=== PATIENT | male | born 1945 | race Caucasian/White ===

== ENCOUNTER 2023-02-25 14:07 | Inpatient (IN) | payer MEDICAID, OTHER ==
[~2023-02-25] VITALS: Ht 177.8 cm; Wt 67.1 kg
[2023-02-25 19:03] LABS: APPEARANCE,URINE SLIGHTLY CLOUDY (CLEAR); BILIRUBIN,URINE 1+ (NEGATIVE); BLOOD, URINE NEGATIVE Ery/uL (NEGATIVE); COLOR,URINE YELLOW (YELLOW); KETONES,URINE TRACE mg/dL (NEGATIVE); LEUKOCYTE ESTERASE ,URINE TRACE (NEGATIVE); NITRITE, URINE NEGATIVE (NEGATIVE); PROTEIN,URINE TRACE mg/dl (NEGATIVE); UGLUCOSE NEGATIVE (NEGATIVE)
[2023-02-25 19:20] LABS: ADD URINE CULTURE NO; BACTERIA,URINE RARE /HPF (None Seen); HYALINE CASTS, URINE Few /LPF (None Seen); MUCUS,URINE Few /LPF (None Seen); RBC,URINE 0-2 /HPF (0-2)
[2023-02-25 20:22] LABS: BASOPHILS # (AUTO) 0.1 K/uL (0.0-0.2); BASOPHILS % (AUTO) 0.9 % (0.0-2.0); EOSINOPHILS # (AUTO) 0.1 K/uL (0.0-0.7); EOSINOPHILS % (AUTO) 1.7 % (0.0-6.0); HEMATOCRIT 42 % (39-51); HEMOGLOBIN 13.8 g/dL (13.5-17.5); LYMPHOCYTES # (AUTO) 2.2 K/uL (0.8-4.8); LYMPHOCYTES % (AUTO) 31.9 % (20.0-44.0); MEAN CORPUSCULAR HEMOGLOBIN 33 PG (26.0-33.0); MEAN CORPUSCULAR HGB CONC 33 g/dl (31.0-36.0); MEAN CORPUSCULAR VOLUME 101 fL (80-96); MONOCYTES # (AUTO) 0.7 K/uL (0.1-1.30); MONOCYTES % (AUTO) 9.6 % (2.0-12.0); NEUTROPHILS # (AUTO) 3.8 K/uL (1.8-8.9); NEUTROPHILS % (AUTO) 55.9 % (43.0-81.0); PLATELET COUNT (AUTO) 154 K/uL (150-450); RED BLOOD CELL COUNT(AUTO) 4.16 MIL/uL (4.5-6.0); RED CELL DISTRIBUTION WIDTH 13.9 % (11.5-15.0); WHITE BLOOD COUNT (AUTO) 6.9 K/uL (4.3-11.0)
[2023-02-25 20:31] LABS: CALCIUM, SERUM 9.1 mg/dL (8.5-10.1); CARBON DIOXIDE 24 mmol/L (21-32); CHLORIDE 105 mmol/L (98-107); GLUCOSE 127 mg/dL (74-106); POTASSIUM 3.5 mmol/L (3.5-5.1); SODIUM SERUM 141 mmol/L (136-145); UREA NITROGEN, BLOOD 21 mg/dL (7-18)
[2023-02-25] MEDS ORDERED: IV NS 0.9% 1,000 ML IV ONE (21:00)
[2023-02-25 21:30] VITALS: BP 144/68; TEMP 97.7; O2SAT 97
[2023-02-25] MEDS ORDERED: Z GUARD REMEDY 4 OZ OINT TP PRN (22:00)
[2023-02-25] MEDS ORDERED: ZOLPIDEM TARTRATE 5 MG TABLET PO PRN (22:00)
[2023-02-25] MEDS ORDERED: MAGNESIUM HYDROXIDE 30 ML UDC PO PRN (22:00)
[2023-02-25] MEDS ORDERED: ONDANSETRON HCL/PF 4 MG/2 ML VIAL IVP PRN (22:00)
[2023-02-25] MEDS ORDERED: MAG HYDROX/AL HYDROX/SIMETH 30 ML UDC PO PRN (22:00)
[2023-02-25] MEDS: ENOXAPARIN SODIUM 40 MG/0.4 ML DISP.SYRIN SQ SCH (22:54)
[2023-02-26] MEDS ORDERED: HYDR25TA4 PO (00:58)
[2023-02-26] MEDS ORDERED: LATA2.5D2 EACHEYE (00:58)
[2023-02-26] MEDS ORDERED: ASPI-1169 PO (00:58)
[2023-02-26] MEDS ORDERED: LISI20TA30 PO (00:58)
[2023-02-26] MEDS ORDERED: DORZ10DR13 EACHEYE (00:58)
[2023-02-26] MEDS ORDERED: MORPHINE SULFATE INJ 2 MG/ML DISP.SYRIN IV PRN (05:21)
[2023-02-26 06:10] LABS: BASOPHILS # (AUTO) 0.1 K/uL (0.0-0.2); BASOPHILS % (AUTO) 0.9 % (0.0-2.0); EOSINOPHILS # (AUTO) 0.2 K/uL (0.0-0.7); EOSINOPHILS % (AUTO) 2.6 % (0.0-6.0); HEMATOCRIT 39 % (39-51); HEMOGLOBIN 13.1 g/dL (13.5-17.5); LYMPHOCYTES # (AUTO) 2.1 K/uL (0.8-4.8); LYMPHOCYTES % (AUTO) 34.2 % (20.0-44.0); MEAN CORPUSCULAR HEMOGLOBIN 33 PG (26.0-33.0); MEAN CORPUSCULAR HGB CONC 33 g/dl (31.0-36.0); MEAN CORPUSCULAR VOLUME 100 fL (80-96); MONOCYTES # (AUTO) 0.8 K/uL (0.1-1.30); MONOCYTES % (AUTO) 12.2 % (2.0-12.0); NEUTROPHILS # (AUTO) 3.1 K/uL (1.8-8.9); NEUTROPHILS % (AUTO) 50.1 % (43.0-81.0); PLATELET COUNT (AUTO) 156 K/uL (150-450); RED BLOOD CELL COUNT(AUTO) 3.94 MIL/uL (4.5-6.0); RED CELL DISTRIBUTION WIDTH 13.9 % (11.5-15.0); WHITE BLOOD COUNT (AUTO) 6.2 K/uL (4.3-11.0)
[2023-02-26 06:31] LABS: CALCIUM, SERUM 8.7 mg/dL (8.5-10.1); CARBON DIOXIDE 26 mmol/L (21-32); CHLORIDE 107 mmol/L (98-107); GLUCOSE 103 mg/dL (74-106); MAGNESIUM 1.8 mg/dL (1.8-2.4); PHOSPHORUS 3.5 mg/dL (2.5-4.9); POTASSIUM 3.4 mmol/L (3.5-5.1); SODIUM SERUM 141 mmol/L (136-145); UREA NITROGEN, BLOOD 20 mg/dL (7-18)
[2023-02-26 06:41] LABS: THYROID STIMULATING HORMONE 1.128 uIU/mL (0.358-3.74)
[2023-02-26 08:00] VITALS: BP 159/75; TEMP 98.1; O2SAT 96
[2023-02-26] MEDS: PANTOPRAZOLE 40 MG TABLET.DR PO SCH (08:11)
[2023-02-26] MEDS ORDERED: POTASSIUM CHLORIDE 20 MEQ TAB.PRT.SR PO SCH (10:30)
[2023-02-26 16:14] VITALS: BP 141/79; TEMP 98.2; O2SAT 95
[2023-02-26 20:00] VITALS: BP 136/73; TEMP 98.1; O2SAT 97
[2023-02-26] MEDS: ENOXAPARIN SODIUM 40 MG/0.4 ML DISP.SYRIN SQ SCH (22:51)
[2023-02-27 06:21] LABS: BASOPHILS # (AUTO) 0.1 K/uL (0.0-0.2); EOSINOPHILS # (AUTO) 0.2 K/uL (0.0-0.7); EOSINOPHILS % (AUTO) 2.5 % (0.0-6.0); HEMATOCRIT 39 % (39-51); LYMPHOCYTES # (AUTO) 2.2 K/uL (0.8-4.8); LYMPHOCYTES % (AUTO) 34.9 % (20.0-44.0); MEAN CORPUSCULAR HEMOGLOBIN 33 PG (26.0-33.0); MEAN CORPUSCULAR HGB CONC 33 g/dl (31.0-36.0); MEAN CORPUSCULAR VOLUME 100 fL (80-96); MONOCYTES # (AUTO) 0.7 K/uL (0.1-1.30); MONOCYTES % (AUTO) 10.5 % (2.0-12.0); NEUTROPHILS # (AUTO) 3.2 K/uL (1.8-8.9); NEUTROPHILS % (AUTO) 51.1 % (43.0-81.0); PLATELET COUNT (AUTO) 165 K/uL (150-450); RED BLOOD CELL COUNT(AUTO) 3.91 MIL/uL (4.5-6.0); RED CELL DISTRIBUTION WIDTH 13.6 % (11.5-15.0); WHITE BLOOD COUNT (AUTO) 6.2 K/uL (4.3-11.0)
[2023-02-27 06:34] LABS: CALCIUM, SERUM 8.9 mg/dL (8.5-10.1); CARBON DIOXIDE 25 mmol/L (21-32); CHLORIDE 109 mmol/L (98-107); CREATININE 0.9 mg/dL (0.6-1.3); GLUCOSE 106 mg/dL (74-106); POTASSIUM 3.8 mmol/L (3.5-5.1); SODIUM SERUM 142 mmol/L (136-145); UREA NITROGEN, BLOOD 22 mg/dL (7-18)
[2023-02-27 07:00] VITALS: BP 151/75; TEMP 97.3; O2SAT 99
[2023-02-27] MEDS: PANTOPRAZOLE 40 MG TABLET.DR PO SCH (08:12)
[2023-02-27] MEDS ORDERED: LIDOCAINE 2% 20 ML MDV TP STA (12:21)
[2023-02-27 16:00] VITALS: BP 158/84; TEMP 97.5; O2SAT 98
[2023-02-27] MEDS: LISINOPRIL (20MG) 20 MG TABLET PO SCH (16:55)
[2023-02-27] MEDS: HYDROCHLOROTHIAZIDE 25 MG TABLET PO SCH (16:56)
[2023-02-27 20:00] VITALS: BP 147/74; TEMP 97.6; O2SAT 92
[2023-02-27] MEDS: ENOXAPARIN SODIUM 40 MG/0.4 ML DISP.SYRIN SQ SCH (22:11)
[2023-02-28 06:13] LABS: BASOPHILS % (AUTO) 0.9 % (0.0-2.0); EOSINOPHILS # (AUTO) 0.2 K/uL (0.0-0.7); EOSINOPHILS % (AUTO) 3.4 % (0.0-6.0); HEMATOCRIT 41 % (39-51); HEMOGLOBIN 13.6 g/dL (13.5-17.5); LYMPHOCYTES # (AUTO) 1.9 K/uL (0.8-4.8); LYMPHOCYTES % (AUTO) 34.8 % (20.0-44.0); MEAN CORPUSCULAR HEMOGLOBIN 33 PG (26.0-33.0); MEAN CORPUSCULAR HGB CONC 33 g/dl (31.0-36.0); MEAN CORPUSCULAR VOLUME 100 fL (80-96); MONOCYTES # (AUTO) 0.7 K/uL (0.1-1.30); MONOCYTES % (AUTO) 11.7 % (2.0-12.0); NEUTROPHILS # (AUTO) 2.7 K/uL (1.8-8.9); NEUTROPHILS % (AUTO) 49.2 % (43.0-81.0); PLATELET COUNT (AUTO) 154 K/uL (150-450); RED BLOOD CELL COUNT(AUTO) 4.09 MIL/uL (4.5-6.0); RED CELL DISTRIBUTION WIDTH 13.7 % (11.5-15.0); WHITE BLOOD COUNT (AUTO) 5.6 K/uL (4.3-11.0)
[2023-02-28 06:40] LABS: CALCIUM, SERUM 9.2 mg/dL (8.5-10.1); CARBON DIOXIDE 21 mmol/L (21-32); CHLORIDE 108 mmol/L (98-107); CREATININE 0.8 mg/dL (0.6-1.3); GLUCOSE 107 mg/dL (74-106); POTASSIUM 4.1 mmol/L (3.5-5.1); SODIUM SERUM 140 mmol/L (136-145); UREA NITROGEN, BLOOD 24 mg/dL (7-18)
[2023-02-28 07:30] VITALS: BP 152/92; TEMP 97.7; O2SAT 95
[2023-02-28] MEDS: PANTOPRAZOLE 40 MG TABLET.DR PO SCH (10:04)
[2023-02-28] MEDS: LISINOPRIL (20MG) 20 MG TABLET PO SCH (10:05)
[2023-02-28] MEDS: HYDROCHLOROTHIAZIDE 25 MG TABLET PO SCH (10:05)
[2023-02-28 20:00] VITALS: BP 162/85; TEMP 98.4; O2SAT 98
[2023-02-28] MEDS ORDERED: CLONIDINE HCL 0.1 MG TABLET PO PRN (20:00)
[2023-02-28] MEDS: ENOXAPARIN SODIUM 40 MG/0.4 ML DISP.SYRIN SQ SCH (21:07)
[2023-02-28 21:35] VITALS: BP 162/85; TEMP 98.4; O2SAT 98
[2023-03-01 07:30] VITALS: BP 114/80; TEMP 97.9; O2SAT 96
[2023-03-01] MEDS: HYDROCHLOROTHIAZIDE 25 MG TABLET PO SCH (08:30)
[2023-03-01] MEDS: PANTOPRAZOLE 40 MG TABLET.DR PO SCH (08:33)
[2023-03-01] MEDS: LISINOPRIL (20MG) 20 MG TABLET PO SCH (08:33)
[2023-03-01] MEDS ORDERED: GADOTERATE MEGLUMINE 10 MMOL/20 ML VIAL IV ONE (10:42)
[2023-03-01 16:00] VITALS: BP 160/87; TEMP 97.7; O2SAT 98
[2023-03-01 20:00] VITALS: BP 140/81; TEMP 97.5; O2SAT 98
[2023-03-01 20:11] LABS: CHOLESTEROL 161 mg/dL (<200); HDL CHOLESTEROL 55 mg/dL (40-60); LDL 95 mg/dL (0-99); TRIGLYCERIDES 105 mg/dL (30-150)
[2023-03-01] MEDS ORDERED: NICOTINE PATCH (21MG) 21 MG PATCH.TD24 TD SCH (21:00)
[2023-03-01] MEDS: ENOXAPARIN SODIUM 40 MG/0.4 ML DISP.SYRIN SQ SCH (22:21)
[2023-03-02 08:00] VITALS: BP 134/83; TEMP 98.7; O2SAT 97
[2023-03-02] MEDS: PANTOPRAZOLE 40 MG TABLET.DR PO SCH (08:27)
[2023-03-02] MEDS: NICOTINE PATCH (21MG) 21 MG PATCH.TD24 TD SCH (09:09)
[2023-03-02] MEDS: CLOPIDOGREL BISULFATE 75 MG TABLET PO SCH (09:10)
[2023-03-02] MEDS: ASPIRIN 81 MG TAB.CHEW PO SCH (09:10)
[2023-03-02] MEDS: HYDROCHLOROTHIAZIDE 25 MG TABLET PO SCH (09:10)
[2023-03-02] MEDS: LISINOPRIL (20MG) 20 MG TABLET PO SCH (09:10)
[2023-03-02] MEDS ORDERED: CT SWABBABLE VALVE TRANS SET 1 EA INFUS.SET MC ONE (13:14)
[2023-03-02] MEDS ORDERED: IV NS 0.9% 250 ML IV ONE (13:14)
[2023-03-02] MEDS ORDERED: IOHEXOL-350 100 ML VIAL IV ONE (13:14)
[2023-03-02 16:00] VITALS: BP 130/81; TEMP 98.6; O2SAT 99
[2023-03-02] MEDS: ACETAMINOPHEN 325 MG TABLET PO PRN (17:14)
[2023-03-02 20:00] VITALS: BP 146/86; TEMP 98.1; O2SAT 95
[2023-03-02] MEDS: ENOXAPARIN SODIUM 40 MG/0.4 ML DISP.SYRIN SQ SCH (21:58)
[2023-03-03 08:00] VITALS: BP 139/80; TEMP 98.6; O2SAT 99
[2023-03-03] MEDS: ASPIRIN 81 MG TAB.CHEW PO SCH (08:28)
[2023-03-03] MEDS ORDERED: NICO-762 TD (08:28)
[2023-03-03] MEDS ORDERED: ATOR20TA PO (08:28)
[2023-03-03] MEDS: PANTOPRAZOLE 40 MG TABLET.DR PO SCH (08:28)
[2023-03-03] MEDS ORDERED: CLOP75TA15 PO (08:28)
[2023-03-03] MEDS: CLOPIDOGREL BISULFATE 75 MG TABLET PO SCH (08:29)
[2023-03-03] MEDS: NICOTINE PATCH (21MG) 21 MG PATCH.TD24 TD SCH (08:29)
[2023-03-03] MEDS: HYDROCHLOROTHIAZIDE 25 MG TABLET PO SCH (08:29)
[2023-03-03] MEDS: LISINOPRIL (20MG) 20 MG TABLET PO SCH (08:29)
[2023-03-03 16:00] VITALS: BP 131/76; TEMP 98.4; O2SAT 94
[2023-03-03 20:00] VITALS: BP 118/72; TEMP 98.1; O2SAT 100
[2023-03-03] MEDS: ACETAMINOPHEN 325 MG TABLET PO PRN (20:29)
[2023-03-03] MEDS: ENOXAPARIN SODIUM 40 MG/0.4 ML DISP.SYRIN SQ SCH (21:51)
[2023-03-04 07:00] VITALS: BP 135/69; TEMP 98.6; O2SAT 99
[2023-03-04] MEDS: PANTOPRAZOLE 40 MG TABLET.DR PO SCH (08:13)
[2023-03-04] MEDS: ASPIRIN 81 MG TAB.CHEW PO SCH (08:14)
[2023-03-04] MEDS: CLOPIDOGREL BISULFATE 75 MG TABLET PO SCH (08:14)
[2023-03-04] MEDS: LISINOPRIL (20MG) 20 MG TABLET PO SCH (08:14)
[2023-03-04] MEDS: HYDROCHLOROTHIAZIDE 25 MG TABLET PO SCH (08:14)
[2023-03-04] MEDS: NICOTINE PATCH (21MG) 21 MG PATCH.TD24 TD SCH (08:14)
[2023-03-04] MEDS: ACETAMINOPHEN 325 MG TABLET PO PRN ×2 (10:39→16:15)
[2023-03-04 16:00] VITALS: BP 86/64; TEMP 98.2; O2SAT 97
[2023-03-04] MEDS ORDERED: ATORVASTATIN 10 MG TABLET PO SCH (22:00)
== END 2023-03-04 16:00 | DRG 543 ==
LOC: ER 14:16 → MED 20:38
PROVIDERS: ADMIT Student in an Organized Health Care Education/Training Program; ATTEND Internal Medicine
PROC: 0JB10ZX Excision of Face Subcutaneous Tissue and Fascia, Open Approach, Diagnostic (ICD-10-PCS; principal; 2023-02-27)
PROC: 05HB33Z Insertion of Infusion Device into Right Basilic Vein, Percutaneous Approach (ICD-10-PCS; 2023-03-02)
DX: M48.56XA Collapsed vertebra, not elsewhere classified, lumbar region, initial encounter for fracture (principal); G91.9 Hydrocephalus, unspecified; E86.0 Dehydration; W01.0XXA Fall on same level from slipping, tripping and stumbling without subsequent striking against object, initial encounter; Y92.009 Unspecified place in unspecified non-institutional (private) residence as the place of occurrence of the external cause; I10 Essential (primary) hypertension; Z20.822 Contact with and (suspected) exposure to COVID-19; G89.29 Other chronic pain; J34.89 Other specified disorders of nose and nasal sinuses; R79.89 Other specified abnormal findings of blood chemistry; D32.0 Benign neoplasm of cerebral meninges; Z86.73 Personal history of transient ischemic attack (TIA), and cerebral infarction without residual deficits; Z85.828 Personal history of other malignant neoplasm of skin; G62.9 Polyneuropathy, unspecified; F17.200 Nicotine dependence, unspecified, uncomplicated; K62.89 Other specified diseases of anus and rectum; C44.319 Basal cell carcinoma of skin of other parts of face
CPT/HCPCS: 36415; 70450-TC; 70496-TC; 70498-TC; 70553-TC; 72131-TC; 73610-TC; 73700-TC; 80048-TC; 80061-TC; 81001; 83735-TC; 84100-TC; 84443-TC; 85025-TC; 88305-TC; 93307-TC; 97110-TC; 97116-TC; 97530-TC; 97535-TC; A9575; G0378; J1650; J2270; J3490; J7050; Q9967